=== PATIENT | male | born 1990 | race Hispanic/Latino ===

== ENCOUNTER 2017-10-14 18:22 | Emergency (ER) | payer BC, OTHER ==
[2017-10-14 18:29] VITALS: BP 115/60; PULSE 62; RESP 18; TEMP 97.9; O2SAT 99
--- NOTE | 2017-10-14 19:02 | ED PDOC ---
HPI: Back Time Seen by Provider: 10/14/17 18:48 Chief Complaint (Nursing): Back Pain Chief Complaint (Provider): Lower Back Pain History Per: Patient History/Exam Limitations: no limitations Onset/Duration Of Symptoms: Hrs Current Symptoms Are (Timing): Still Present Quality Of Discomfort: "Pain" Severity: None Pain Scale Rating Of: 7 Previous Symptoms: Back Pain Associated Symptoms: None Additional Complaint(s): 27 year old male with a past medical history of back pain presents to the ED complaining of lower back pain. Patient states that about 5 hours ago he was lifting an object and that when the pain began. He states describes the felling as a shooting pain and states that it radiates to his groin and the back of his b/l lower extremities. The patient further states that 4 years ago he was given a shot to reduce back pain that he had then. Denies rash. PMD: Dr. Brown ([place]) Past Medical History Reviewed: Historical Data, Nursing Documentation, Vital Signs Vital Signs: Last Vital Signs Temp 97.9 F 10/14/17 18:25 Pulse 62 10/14/17 18:25 Resp 18 10/14/17 18:25 BP 115/60 10/14/17 18:25 Pulse Ox 99 10/14/17 18:25 - Medical History PMH: Back Problems - Surgical History Surgical History: No Surg Hx - Family History Family History: States: Unknown Family Hx - Living Arrangements Living Arrangements: With Family - Social History Current smoker - smoking cessation education provided: No Ex-Smoker (has not smoked in the last 12 months): No Alcohol: Social Drugs: Denies - Home Medications Home Medications: Ambulatory Orders Medication Instructions Recorded Acetaminophen [Acetaminophen Extra 2 tab PO Q6 PRN #24 tablet 10/14/17 Strength] Methylprednisolone [Medrol Dose 4 mg PO DAILY #21 mg 10/14/17 Pack (21 tabs)] diaZEpam [Valium] 5 mg PO Q6 PRN #4 tab 10/14/17 - Allergies Allergies/Adverse Reactions: Allergies Allergy/AdvReac Type Severity Reaction Status Date / Time No Known Allergies Allergy Verified 10/14/17 18:25 Review of Systems ROS Statement: Except As Marked, All Systems Reviewed And Found Negative Musculoskeletal: Positive for: Back Pain (radiating to b/l legs) Skin: Negative for: Rash (no rash on back) Physical Exam - Reviewed Nursing Documentation Reviewed: Yes Vital Signs Reviewed: Yes - Physical Exam Appears: Positive for: Non-toxic, No Acute Distress Head Exam: Positive for: ATRAUMATIC, NORMAL INSPECTION, NORMOCEPHALIC Skin: Positive for: Normal Color, Warm, Dry. Negative for: Rash Eye Exam: Positive for: Normal appearance, EOMI, PERRL. Negative for: Nystagmus Neck: Positive for: Normal, Painless ROM, Supple Cardiovascular/Chest: Positive for: Regular Rate, Rhythm, Chest Non Tender. Negative for: Tachycardia Respiratory: Positive for: Normal Breath Sounds. Negative for: Wheezing, Respiratory Distress Back: Positive for: Other (parascral tenderness). Negative for: L CVA Tenderness, R CVA Tenderness Extremity: Positive for: Normal ROM (5/5 plantar/dorsal strength; good sensation b/l). Negative for: Tenderness, Deformity, Swelling Neurologic/Psych: Positive for: Alert, Oriented - ECG O2 Sat by Pulse Oximetry: 99 (RA) Pulse Ox Interpretation: Normal Medical Decision Making Medical Decision Makin Initial Impression 27 y/o male presenting with back pain Initial Plan: * Toradol 30mg IM * Reevaluation Documented by Chrissie Lux acting as a scribe for Joseph Kebede PA-C. All medical record entries made by the Scribe were at my direction and personally dictated by me. I have reviewed the chart and agree that the record accurately reflects my personal performance of the history, physical exam, medical decision making, and the department course for this patient. I have also personally directed, reviewed, and agree with the discharge instructions and disposition. Disposition - Clinical Impression Clinical Impression: Sciatica - Patient ED Disposition Is Patient to be Admitted: No - Disposition Disposition: Routine/Home Disposition Time: 19:19 Condition: FAIR Prescriptions: Acetaminophen [Acetaminophen Extra Strength] 2 tab PO Q6 PRN #24 tablet PRN Reason: Pain, Moderate (4-7) diaZEpam [Valium] 5 mg PO Q6 PRN #4 tab PRN Reason: Muscle Spasm Methylprednisolone [Medrol Dose Pack (21 tabs)] 4 mg PO DAILY #21 mg Instructions: Sciatica (ED) Forms: [employer] (Mongolian), [facility] ED School/Work Excuse
== END 2017-10-14 19:20 | disposition home or self-care (01) ==
LOC: H.ER 18:22
DX: M54.30 Sciatica, unspecified side (principal); Z87.891 Personal history of nicotine dependence
CPT/HCPCS: 96372; 99282; J1885